=== PATIENT | female | born 1950 | race Caucasian/White ===

== ENCOUNTER 2024-08-12 13:41 | Emergency (ER) | payer MEDICARE, BC ==
[~2024-08-12] VITALS: Ht 162.6 cm; Wt 93.1 kg
[2024-08-12] MEDS ORDERED: ondansetron HCL 4 MG/2 ML VIAL IV PRN (16:15)
[2024-08-12] MEDS ORDERED: KETOROLAC TROMETHAMINE 15 MG/ML VIAL IV ONE (16:15)
[2024-08-12 16:38] LABS: BILIRUBIN, URINE NEGATIVE (negative); BLOOD/HGB, URINE NEGATIVE (Negative); KETONE, URINE NEGATIVE (Negative); LEUK ESTERASE, URINE TRACE (negative); NITRITE, URINE NEGATIVE (negative); PH, URINE 6.5 (5-7)
[2024-08-12 16:45] LABS: BACTERIA, URINE NONE SEEN /hpf (negative); CASTS, URINE NONE SEEN \\lpf; COLLECTION TYPE, URINE CLEAN CATCH; CRYSTALS, URINE NONE SEEN (0-1+); EPITHELIAL CELLS, URINE SQUAMOUS 3+ /lpf (0-1+); RED BLOOD CELLS, URINE 0-1 /hpf (0-5); REFLEX CULTURE, URINE No (No)
[2024-08-12 17:04] LABS: HEMATOCRIT 41.5 % (35.0-50.0)
[2024-08-12 17:06] LABS: BASOPHILS 1.1 % (0-2); EOSINOPHILS 5.6 % (0-6); HEMOGLOBIN 14.3 g/dL (12.0-18.0); LYMPHOCYTES 35.5 % (24-44); MCH 34.2 (27-36); MCHC 34.6 g/dl (30-36); MONOCYTES 9.4 % (0-12); NEUTROPHILS 48.4 % (39-80); PLATELET COUNT 182 K/uL (140-440); RBC 4.19 M/ul (4.3-5.7); RDW 14.4 (10.5-15.0)
[2024-08-12 17:19] LABS: ALBUMIN 3.8 g/dL (3.4-5.0); ALBUMIN/GLOBULIN RATIO 1.19 (1.1-2.4); ANION GAP 11.9 (7-21); BILIRUBIN, TOTAL 0.6 mg/dL (0.2-1.0); BUN/CREATININE RATIO 16.43 (6.0-28.6); CALCIUM 10.1 mg/dL (8.5-10.1); CREATININE, SERUM 0.73 mg/dL (0.55-1.02); POTASSIUM 3.9 mmol/L (3.5-5.1)
[2024-08-12 18:10] VITALS: BP 131/57
== END 2024-08-12 18:10 | disposition home or self-care (01) ==
LOC: ED 13:41
PROVIDERS: Emergency Medicine
DX: M54.41 Lumbago with sciatica, right side (principal)
CPT/HCPCS: 36415; 80053; 81001; 85025; 99283